=== PATIENT | female | born 1985 | race Caucasian/White ===

== ENCOUNTER → 2017-05-06 | Outpatient (CLI) | payer OTHER ==
--- NOTE | 2017-05-06 17:37 | PCVCIMAG ---
APPROVED REPORT Study performed: 05/06/2017 14:20:24 EXAM: Comprehensive 2D, Doppler, and color-flow Echocardiogram Patient Location: Echo lab Status: routine Other Information Study Quality: Excellent Risk Factors: Cardiac Risk Factors: FHX of CAD, , Diabetes (insulin) Indications Diabetes Dyspnea FAMILY HX EARLY ONSET CAD 2D Dimensions LVEF(%): 66.94 (>50%) IVSd: 7.48 (7-11mm)LVOT Diam: 19.52 (18-24mm) LVDd: 54.97 mm PWd: 6.25 (7-11mm)Ascending Ao: 33.54 (22-36mm) LVDs: 34.36 (25-40mm) Left Atrium: 35.84 (27-40mm) Aortic Root: 31.59 mm LV Single Plane 4CH: 55.42 % LV Single Plane 2CH: 62.84 %Johansen's LVEF: 59.13 % Biplane EF: 59.8 % Volumes Left Atrial Volume (Systole) Single Plane 4CH: 39.36 mLSingle Plane 2CH: 54.26 mL LA ESV Index: 23.00 mL/m2 Aortic Valve AoV Peak Kenneth.: 1.46 m/s AO Peak Gr.: 8.49 mmHgLVOT Max P.36 mmHg LVOT Max V: 1.04 m/s ANJEL Vmax: 2.14 cm2 Mitral Valve E/A Ratio: 1.6 MV Decel. Time: 232.48 ms MV E Max Kenneth.: 0.89 m/s MV A Kenneth.: 0.55 m/s TDI E/Lateral E': 4.24E/Medial E': 7.42 Medial E' Kenneth.: 0.12 m/s Lateral E' Kenneth.: 0.21 m/s Pulmonary Valve PV Peak Kenneth.: 0.94 m/sPV Peak Gr.: 3.53 mmHg Pulmonary Vein P Vein S: 0.47 m/sP Vein A: 0.32 m/s P Vein D: 0.65 m/sP Vein A Dur.: 117.6 msec P Vein S/D Ratio: 0.72 Tricuspid Valve TR Peak Kenneth.: 1.65 m/s TR Peak Gr.: 10.84 mmHg TV Vmax: 0.69 m/s Left Ventricle The left ventricle is normal size. There is normal LV segmental wall motion. There is normal left ventricular wall thickness. Left ventricular systolic function is normal. The left ventricular ejection fraction is within the normal range. The left ventricular diastolic function is normal. Right Ventricle The right ventricle is normal size. The right ventricular systolic function is normal. Atria The left atrium size is normal. The right atrium size is normal. Aortic Valve The aortic valve is normal in structure. No aortic regurgitation is present. There is no aortic valvular stenosis. Mitral Valve The mitral valve is normal in structure. There is no mitral valve regurgitation noted. No evidence of mitral valve stenosis. Tricuspid Valve The tricuspid valve is normal in structure. There is trivial tricuspid valve regurgitation noted with a PA pressure [id number]. Pulmonic Valve The pulmonary valve is normal in structure. There is no pulmonic valvular regurgitation. Great Vessels The aortic root is normal in size. The ascending aorta is normal in size. IVC is normal in size and collapses with >50% inspiration Pericardium There is no pericardial effusion. There is no pleural effusion. <Conclusion> The left ventricle is normal size. Left ventricular systolic function is normal. The left ventricular ejection fraction is within the normal range. The right ventricle is normal size. The aortic valve is normal in structure. There is no mitral valve regurgitation noted. There is no pericardial effusion. The aortic root is normal in size.
== END | disposition home or self-care (01) ==
LOC: PCVCIMAG 14:12
PROVIDERS: ATTEND Internal Medicine Cardiovascular Disease
DX: R07.9 Chest pain, unspecified (principal); E11.9 Type 2 diabetes mellitus without complications; Z82.49 Family history of ischemic heart disease and other diseases of the circulatory system; Z79.4 Long term (current) use of insulin
CPT/HCPCS: 93017; 93306